=== PATIENT | male | born 1955 | race American Indian/Alaskan Native ===

== ENCOUNTER 2017-10-19 13:02 | Inpatient (IN) | payer MEDICAID ==
[2017-10-19 14:28] LABS: BASO # 0.1 K/uL (0.0-0.2); BASO % 0.8 % (0.0-2.0); EOS # 0.1 K/uL (0.0-0.7); EOS % 0.5 % (0.0-4.0); HEMOGLOBIN 11.4 g/dL (12.0-18.0); LYMPH # 1.7 K/uL (1.0-4.3); LYMPH % 13.8 % (20.0-40.0); MEAN CELL VOLUME 85.8 fL (80.0-94.0); MEAN CORPUSCULAR HEMOGLOBIN 29.1 pg (27.0-31.0); MEAN PLATELET VOLUME 5.9 fL (7.2-11.7); MONO # 1.7 K/uL (0.0-0.8); MONO % 14.2 % (0.0-10.0); NEUT # 8.5 K/uL (1.8-7.0); NEUT % 70.7 % (50.0-75.0); NRBC % 0.1 % (0.0-2.0); RBC 3.9 Mil/uL (4.40-5.90); RED CELL DISTRIBUTION WIDTH 15.2 % (11.5-14.5)
[2017-10-19 14:51] LABS: ALB/GLOB RATIO 0.8 (1.0-2.1); ALBUMIN 3.9 g/dL (3.5-5.0); ALT/SGPT 28 U/L (21-72); AST/SGOT 23 U/L (17-59); BLOOD UREA NITROGEN 10 mg/dL (9-20); CALCIUM 9.2 mg/dl (8.6-10.4); GFR AFRICAN-AMERICAN > 60; GFR NON-AFRICAN AMERICAN > 60
[2017-10-19 15:02] LABS: B-TYPE NATRIURETIC PEPTIDE 83.2 pg/mL (0-900)
--- NOTE | 2017-10-19 15:29 | RAD ---
PROCEDURE: CHEST RADIOGRAPH, 1 VIEW HISTORY: Shortness of breath. Relevant interventional procedure(s): COMPARISON: 04/20/2017 two view chest. 04/14/2017 ultrasound right pleural space documenting moderate pleural effusion FINDINGS: LUNGS: Consolidative changes right lung, volume loss noted. PLEURA: Large loculated right pleural effusion CARDIOVASCULAR: Cardiomegaly. No evidence of acute, significant cardiovascular disease. OSSEOUS STRUCTURES: No significant abnormalities. VISUALIZED UPPER ABDOMEN: Submit OTHER FINDINGS: None. IMPRESSION: Large loculated right pleural effusion is increased compared to the prior study.
--- NOTE | 2017-10-19 17:21 | C.PDOC ---
History Of Present Illness 62yo male, presents to ED for evaluation as referred by his PMD due to low pulse ox. Patient is currently 90% on room air and is complaining of mild shortness of breath upon exertion. He denies any fever, chills, chest pain, cough, or congestion. He also denies any recent travels or sick contacts. Patient states he has had pleural effusions in the past. He offers no other medial complaints. Time Seen by Provider: 10/19/17 13:50 Chief Complaint (Nursing): Shortness Of Breath History Per: Patient History/Exam Limitations: no limitations Current Symptoms Are (Timing): Still Present Exacerbating Factor(s): Exertion Past Medical History Reviewed: Historical Data, Nursing Documentation, Vital Signs Vital Signs: Last Vital Signs Temp 98.6 F 10/19/17 18:15 Pulse 100 H 10/19/17 18:45 Resp 22 10/19/17 18:45 BP 137/92 H 10/19/17 18:15 Pulse Ox 95 10/19/17 18:45 - Medical History PMH: Anemia (first transfusion during this admission), HTN, Hypercholesterolemia , Malignancy (PROSTATE CANCER HX), Schizophrenia - [employer] Procedures ASSISTANCE WITH RESPIRATORY VENTILATION, 24-96 HRS, CPAP (04/13/17) CLOSED ENDOSCOPIC BIOPSY OF LARGE INTESTINE (11/10/13) COLONOSCOPY (11/10/13) ESOPHAGOGASTRODUODENOSCOPY [EGD] W/CLOSED BIOPSY (11/10/13) IMPACTED FECES REMOVAL (11/10/13) PACKED CELL TRANSFUSION (11/10/13) Family History: States: No Known Family Hx - Social History Hx Tobacco Use: Yes Hx Alcohol Use: No Hx Substance Use: No - Immunization History Hx Tetanus Toxoid Vaccination: No Hx Influenza Vaccination: Yes Hx Pneumococcal Vaccination: No Review Of Systems Except As Marked, All Systems Reviewed And Found Negative. Constitutional: Negative for: Fever, Chills Cardiovascular: Negative for: Chest Pain Respiratory: Positive for: SOB with Excertion. Negative for: Cough Physical Exam - Physical Exam Appears: Non-toxic, No Acute Distress Skin: Normal Color, Warm, Dry Head: Atraumatic, Normacephalic Eye(s): right: Abnormal Pupil (right eye cataract), left: Normal Inspection Oral Mucosa: Moist Neck: Normal ROM, Supple Chest: Symmetrical Cardiovascular: Rhythm Regular Respiratory: Decreased Breath Sounds (right sided diminished breath sounds) Gastrointestinal/Abdominal: Normal Exam, Soft, No Tenderness Back: Normal Inspection Extremity: Normal ROM Neurological/Psych: Oriented x3 ED Course And Treatment - Laboratory Results Result Diagrams: 10/19/17 14:24 10/19/17 14:24 ECG: Interpreted By Me, Viewed By Me ECG Rhythm: Sinus Rhythm Interpretation Of ECG: Left axis deviation, LVH Rate From EC O2 Sat by Pulse Oximetry: 95 (on O2 via NC) Pulse Ox Interpretation: Normal Medical Decision Making Medical Decision Making: Impression: Hypoxia Plan: -- Labs -- O2 via NC --CXR -- EKG Progress: Case discussed with Dr. Byers at 1530 and patient to be admitted under his service to telemetry. CT Chest w/o contrast ordered Disposition - Disposition Disposition: HOSPITALIZED Disposition Time: 15:30 Condition: GOOD - Clinical Impression Clinical Impression: CHF (congestive heart failure), Pleural effusion - Scribe Statement The provider has reviewed the documentation as recorded by the Scribe (Diandra Sandhu) Provider Attestation: All medical record entries made by the Scribe were at my direction and personally dictated by me. I have reviewed the chart and agree that the record accurately reflects my personal performance of the history, physical exam, medical decision making, and the department course for this patient. I have also personally directed, reviewed, and agree with the discharge instructions and disposition.
--- NOTE | 2017-10-19 18:35 | CT ---
PROCEDURE: CT Chest without contrast HISTORY: Right-sided pleural effusion - CXR done today COMPARISON: Comparison made with prior CT scan chest 04/13/2017. TECHNIQUE: Contiguous axial images were obtained through the chest without intravenous contrast enhancement. Sagittal and coronal reconstructions were performed. Radiation dose (DLP): 443.12 mGy-cm. This CT exam was performed using one or more of the following dose reduction techniques: Automated exposure control, adjustment of the mA and/or kV according to patient size, and/or use of iterative reconstruction technique. . FINDINGS: LUNGS: The right-sided effusion some of which appears loculated . There is mild right basilar atelectasis. Patchy nodular opacities in the left lung base present. No significant left-sided effusion. Significant emphysematous changes upper lobe predominance. . There is fibrosis also seen particularly in the right and lower lobes. MEDIASTINUM: Heart appears mildly enlarged. . Trace pericardial effusion. Ascending thoracic aorta measures approximately 3.25 cm and descending thoracic aorta measures approximately 2.8 cm. Pulmonary trunk measures approximately 2.8 cm. Multiple small to medium-sized mediastinal lymph nodes are present the largest in the right parasagittal precarinal region measuring approximately 2 cm. Evaluation for hilar adenopathy is limited due to the lack of circulating intravenous contrast material. There is a small to medium size hiatal hernia. Wall thickening of the distal esophagus likely due to protrusion of gastric mucosa. Possibility of esophagitis not excluded. PLEURA: As above. No evidence of pneumothorax. BONES: No fracture. No destructive lesion. UPPER ABDOMEN: Re- demonstrated are multiple low-attenuation foci seen scattered throughout the hepatic parenchyma on. Minute these foci probably represent hepatic cysts however others are too small to characterize OTHER FINDINGS: None. IMPRESSION: Right-sided effusion portion of which is felt to be loculated. Right basilar atelectasis. Patchy nodular opacity seen in the left lung base. Significant emphysematous changes upper lobe predominance. There also the fibrosis changes seen predominately throughout the right lung upper lobe greater than lower lobe. Re- demonstrated are multiple varying sized low-attenuation foci scattered throughout the hepatic parenchyma many of which felt to represent hepatic cysts however others are too small to characterize. Small to medium size hiatal hernia. Cardiomegaly. With trace pericardial effusion.
[2017-10-19] MEDS ORDERED: Albuterol-Ipratrop 3 mg / 0.5 (3 ml) UD INH PRN (19:55)
[2017-10-19] MEDS: Latanoprost 2.5 ml Opht Soln OD SCH (22:45)
[2017-10-20] MEDS: Azithromycin 500 MG in Sodium Chloride 0.9% 250 ML IVPB SCH (10:15)
--- NOTE | 2017-10-20 12:30 | CARD ---
APPROVED REPORT EKG Measurement Heart [id number] <Conclusion> Normal sinus rhythm Left axis deviation Voltage criteria for left ventricular hypertrophy Abnormal ECG
--- NOTE | 2017-10-20 15:11 | CP.PCM.CON ---
History of Present Illness - History of Present Illness History of Present Illness: Reason for consult: Pleural effusion HPI: 62 M with PMHx of Prostate cancer, Schizophrenia, HTN, HLD referred to the ED for evaluation of low pulse ox. On presentation he was saturating at 90% on RA and reported mild dyspnea on exertion. He was admitted to Dr. Byers' service. A right pleural effusion was identified on CXR and CT chest. Today the patient was seen and examined on the med/surg floors. PMHX: Prostate cancer, Schizophrenia, HTN, HLD PSH: EGD, Allergies: NKDA SH: tobacco use, denies alcohol and illicit drug use Assessment and Plan: 1. Right Pleural effusion - CT Chest 10/19: Right sided loculated effusion, with mild right basilar atelectasis, patchy nodular opacities in the left lung base, emphysematous changes with upper lobe predominance, fibrotic changes through the upper lobes R >L - IR consult for thoracentesis 2. CHF - CT Chest 10/19: mildly enlarged heart, trace pericardial effusion Past Patient History - Infectious Disease Hx of Infectious Diseases: None - Past Medical History & Family History Past Medical History?: No - Past Social History Smoking Status: Heavy Smoker > 10 Cigarettes Daily - CARDIAC Hx Hypercholesterolemia: Yes Hx Hypertension: Yes - HEENT Hx Cataracts: Yes - RENAL Hx Chronic Kidney Disease: No - ENDOCRINE/METABOLIC Hx Endocrine Disorders: No - HEMATOLOGICAL/ONCOLOGICAL Hx Anemia: Yes (first transfusion during this admission) - INTEGUMENTARY Hx Dermatological Problems: No - MUSCULOSKELETAL/RHEUMATOLOGICAL Hx Falls: No - GASTROINTESTINAL Hx Gastrointestinal Disorders: No - GENITOURINARY/GYNECOLOGICAL Hx Genitourinary Disorders: Yes Hx Prostate Cancer: Yes - PSYCHIATRIC Hx Schizophrenia: Yes Hx Substance Use: No - SURGICAL HISTORY Hx Surgeries: No - ANESTHESIA Hx Anesthesia: Yes Hx Anesthesia Reactions: No Meds Allergies/Adverse Reactions: Allergies Allergy/AdvReac Type Severity Reaction Status Date / Time No Known Allergies Allergy Verified 10/19/17 13:40 - Medications Medications: Current Medications Albuterol/Ipratropium (Duoneb 3 Mg/0.5 Mg (3 Ml) Ud) 3 ml INH RQ6 PRN PRN Reason: Shortness of Breath Amlodipine Besylate (Norvasc) 10 mg PO DAILY [facility] Last Admin: 10/20/17 10:12 Dose: 10 mg Bisoprolol Fumarate (Zebeta) 5 mg PO DAILY [facility] Last Admin: 10/20/17 10:12 Dose: 5 mg Clonidine HCl (Catapres) 0.1 mg PO BID [facility] Last Admin: 10/20/17 10:12 Dose: 0.1 mg Enoxaparin Sodium (Lovenox) 40 mg SC DAILY [facility] Ferrous Sulfate (Feosol) 325 mg PO DAILY [facility] Last Admin: 10/20/17 10:12 Dose: 325 mg Azithromycin 500 mg/ Sodium (Chloride) 250 mls @ 250 mls/hr IVPB Q24H [facility] PRN Reason: Protocol Last Admin: 10/20/17 10:15 Dose: 250 mls/hr Ceftriaxone Sodium 1 gm/ (Sodium Chloride) 100 mls @ 100 mls/hr IVPB DAILY [facility] PRN Reason: Protocol Last Admin: 10/20/17 10:13 Dose: 100 mls/hr Latanoprost (Xalatan Opht) 2.5 ml OD HS [facility] Last Admin: 10/19/17 22:45 Dose: 2.5 ml Megestrol Acetate (Megace) 40 mg PO DAILY [facility] Last Admin: 10/20/17 10:12 Dose: 40 mg Oxybutynin Chloride (Ditropan Tab) 5 mg PO TID [facility] Last Admin: 10/20/17 13:46 Dose: 5 mg Prednisone (Prednisone Tab) 10 mg PO DAILY [facility] Last Admin: 10/20/17 10:12 Dose: 10 mg Rosuvastatin Calcium (Crestor) 5 mg PO HS [facility] Thiamine HCl (Vitamin B1 Tab) 50 mg PO DAILY [facility] Last Admin: 10/20/17 10:12 Dose: 50 mg Results - Vital Signs Recent Vital Signs: Last Vital Signs Temp 98.3 F 10/20/17 08:00 Pulse 90 10/20/17 08:15 Resp 20 10/20/17 08:00 BP 153/93 H 10/20/17 08:00 Pulse Ox 95 10/20/17 08:00 - Labs Result Diagrams: 10/19/17 14:24 10/19/17 14:24
[2017-10-20] MEDS: Enoxaparin 40 mg Syringe SC SCH (22:19)
[2017-10-20] MEDS: Latanoprost 2.5 ml Opht Soln OD SCH (22:20)
--- NOTE | 2017-10-21 06:18 | HP ---
HISTORY OF PRESENT ILLNESS: This is a 62-year-old female with past medical history of multiple medical problems, sent to emergency room from my office on the day of admission due to shortness of breath. The patient was examined in the emergency room, and he was found to have O2 saturation of 90% in room air, and he reported to have mild exertional shortness of breath. The patient had a chest x-ray, and CAT scan that showed right-sided loculated pleural effusion and possible left-sided nodular infiltration. The patient subsequently was admitted for further management and pulmonary consult was obtained. Other review of system is negative. ALLERGIES: NO KNOWN ALLERGY. MEDICATIONS: As per MAR. PAST MEDICAL HISTORY: Cancer prostate, anemia, COPD, hypertension. SOCIAL HISTORY: Smoker. No EtOH or substance abuse. FAMILY HISTORY: Noncontributory. PHYSICAL EXAMINATION: GENERAL: The patient is in bed, not in any cardiopulmonary distress at the time of this examination. VITAL SIGNS: Blood pressure 124/81, temperature 98, respiratory rate 20, pulse 81. HEENT: Normal-appearing mucosa of the conjunctivae, oropharynx, and nasal membrane mucosa. NECK: Supple. No JVD. No carotid bruit. No lymph node. No thyromegaly. CHEST AND LUNGS: Bilateral symmetrical expansion. Decreased air entry right lower lung field. CARDIOVASCULAR SYSTEM: PMI not localized. S1, S2. No additional sounds. ABDOMEN: Normoactive bowel sounds. No tenderness. No organomegaly. No masses. EXTREMITIES: No cyanosis, no clubbing, no edema. CURRENCY COUNTER: Alert, awake, oriented x2. Moves all extremities equally. ASSESSMENT: 1. Loculated right pleural effusion, possible left lung nodular infiltrate. 2. Sepsis. 3. Hypertension. PLAN: Continue current antibiotics and follow recommendation of upper and bottom lacer hand. We will continue steroid 2 mg and follow recommendation of consultants. Jaclyn Byers MD
[2017-10-21 07:26] LABS: BLOOD UREA NITROGEN 15 mg/dL (9-20); CALCIUM 8.7 mg/dl (8.6-10.4); GFR AFRICAN-AMERICAN > 60; GFR NON-AFRICAN AMERICAN > 60
[2017-10-21 07:36] LABS: BASO # 0.1 K/uL (0.0-0.2); BASO % 0.7 % (0.0-2.0); EOS # 0.1 K/uL (0.0-0.7); EOS % 0.7 % (0.0-4.0); HEMOGLOBIN 10.3 g/dL (12.0-18.0); LYMPH # 1.8 K/uL (1.0-4.3); LYMPH % 17.1 % (20.0-40.0); MEAN CELL VOLUME 85.9 fL (80.0-94.0); MEAN CORPUSCULAR HEMOGLOBIN 29.2 pg (27.0-31.0); MONO # 1.5 K/uL (0.0-0.8); MONO % 14.8 % (0.0-10.0); NEUT % 66.7 % (50.0-75.0); RBC 3.53 Mil/uL (4.40-5.90); RED CELL DISTRIBUTION WIDTH 15.2 % (11.5-14.5); WHITE BLOOD COUNT 10.5 K/uL (4.8-10.8)
[2017-10-21] MEDS: Enoxaparin 40 mg Syringe SC SCH (10:12)
[2017-10-21 10:50] LABS: INR 1.1; PROTHROMBIN TIME 13.1 SECONDS (9.7-12.2)
[2017-10-21] MEDS: Azithromycin 500 MG in Sodium Chloride 0.9% 250 ML IVPB SCH (12:21)
--- NOTE | 2017-10-21 16:43 | CP.PCM.PN ---
Subjective - Date & Time of Evaluation Date of Evaluation: 10/21/17 Time of Evaluation: 10:30 - Subjective Subjective: Patient seen and examined at bedside. No complaints today. Patient still short of breath but improved. No acute events overnight. Assessment and Plan: 1. Right Pleural effusion - CT Chest 10/19: Right sided loculated effusion, with mild right basilar atelectasis, patchy nodular opacities in the left lung base, fibrotic changes through the upper lobes R>L - IR consult for thoracentesis 2. COPD - CT Chest 10/19: emphysematous changes with upper lobe predominance - duonebs - prednisone 10mg PO QD - IV antibiotics 3. CHF - CT Chest 10/19: mildly enlarged heart, trace pericardial effusion Objective - Vital Signs/Intake and Output Vital Signs (last 24 hours): Temp Pulse Resp BP Pulse Ox 97.9 F 84 18 147/93 H 95 10/21/17 07:10 10/21/17 15:54 10/21/17 07:10 10/21/17 07:10 10/21/17 07:10 Intake and Output: 10/21/17 10/21/17 06:59 18:59 Intake Total 0 Balance 0 - Medications Medications: Current Medications Albuterol/Ipratropium (Duoneb 3 Mg/0.5 Mg (3 Ml) Ud) 3 ml INH RQ6 PRN PRN Reason: Shortness of Breath Amlodipine Besylate (Norvasc) 10 mg PO DAILY [facility] Last Admin: 10/21/17 10:12 Dose: 10 mg Bisoprolol Fumarate (Zebeta) 5 mg PO DAILY [facility] Last Admin: 10/21/17 10:12 Dose: 5 mg Clonidine HCl (Catapres) 0.1 mg PO BID [facility] Last Admin: 10/21/17 10:12 Dose: 0.1 mg Enoxaparin Sodium (Lovenox) 40 mg SC DAILY [facility] Last Admin: 10/21/17 10:12 Dose: Not Given Ferrous Sulfate (Feosol) 325 mg PO DAILY [facility] Last Admin: 10/21/17 10:12 Dose: 325 mg Azithromycin 500 mg/ Sodium (Chloride) 250 mls @ 250 mls/hr IVPB Q24H [facility] PRN Reason: Protocol Last Admin: 10/21/17 12:21 Dose: 250 mls/hr Ceftriaxone Sodium 1 gm/ (Sodium Chloride) 100 mls @ 200 mls/hr IVPB DAILY [facility] PRN Reason: Protocol Last Admin: 10/21/17 10:49 Dose: Not Given Latanoprost (Xalatan Opht) 2.5 ml OD HS [facility] Last Admin: 10/20/17 22:20 Dose: 2.5 ml Megestrol Acetate (Megace) 40 mg PO DAILY [facility] Last Admin: 10/21/17 10:12 Dose: 40 mg Oxybutynin Chloride (Ditropan Tab) 5 mg PO TID [facility] Last Admin: 10/21/17 13:51 Dose: 5 mg Prednisone (Prednisone Tab) 10 mg PO DAILY [facility] Last Admin: 10/21/17 10:12 Dose: 10 mg Rosuvastatin Calcium (Crestor) 5 mg PO HS [facility] Last Admin: 10/20/17 22:19 Dose: 5 mg Thiamine HCl (Vitamin B1 Tab) 50 mg PO DAILY [facility] Last Admin: 10/21/17 10:12 Dose: 50 mg - Labs Labs: 10/21/17 06:56 10/21/17 06:56 PT 13.1 SECONDS (9.7-12.2) H 10/21/17 10:38 INR 1.1 10/21/17 10:38 APTT 30 SECONDS (21-34) 10/21/17 10:38
[2017-10-21] MEDS: Latanoprost 2.5 ml Opht Soln OD SCH (21:37)
--- NOTE | 2017-10-22 02:47 | PN ---
DATE: 10/21/2017 SUBJECTIVE: The patient is seen today 10/21/2017. He is less short of breath. PHYSICAL EXAMINATION: VITAL SIGNS: Blood pressure 144/90, temperature 98.3, respiratory rate 20 and pulse 84. HEENT: Normal-appearing mucosa of the conjunctivae. NECK: Supple. No JVD. No carotid bruit. No lymph node. No thyromegaly. CHEST AND LUNGS: Decreased air entry right lower lung goa. CARDIOVASCULAR SYSTEM: PMI not localized. S1, S2. No additional sounds. ABDOMEN: Normoactive bowel sounds. No tenderness. No organomegaly. No masses. EXTREMITIES: No cyanosis, no clubbing, no edema. AGRONOMY ADVISOR: Alert, awake, oriented x2. No neurological deficit could be appreciated. ASSESSMENT: 1. Loculated pleural effusion with possible underlying pneumonia. 2. Hypertension. 3. History of prostate cancer. PLAN Continue current IV antibiotics and follow Pulmonary recommendations. Jaclyn Byers MD
[2017-10-22] MEDS: Azithromycin 500 MG in Sodium Chloride 0.9% 250 ML IVPB SCH (10:30)
--- NOTE | 2017-10-22 11:11 | US ---
PROCEDURE: DATE OF STUDY: 10/22/2017 Ultrasound of chest for purposes of thoracentesis HISTORY: Pleural effusion COMPARISON: TECHNIQUE: Limited ultrasound of chest was performed with a curved probe. FINDINGS: There is no left effusion and trace right effusion. Right effusion is too small for thoracentesis. IMPRESSION: No significant pleural effusion for thoracentesis.
[2017-10-22] MEDS: Enoxaparin 40 mg Syringe SC SCH (11:15)
--- NOTE | 2017-10-22 17:52 | CP.PCM.PN ---
Subjective - Date & Time of Evaluation Date of Evaluation: 10/22/17 Time of Evaluation: 11:30 - Subjective Subjective: patient seen and examined Sitting comfortably in no acute distress Not enough fluid for thoracentesis Objective - Vital Signs/Intake and Output Vital Signs (last 24 hours): Temp Pulse Resp BP Pulse Ox 99.1 F 81 20 114/76 96 10/22/17 15:00 10/22/17 16:00 10/22/17 15:00 10/22/17 15:00 10/22/17 15:00 Intake and Output: 10/22/17 10/22/17 06:59 18:59 Intake Total 240 Balance 240 - Medications Medications: Current Medications Albuterol/Ipratropium (Duoneb 3 Mg/0.5 Mg (3 Ml) Ud) 3 ml INH RQ6 PRN PRN Reason: Shortness of Breath Amlodipine Besylate (Norvasc) 10 mg PO DAILY [facility] Last Admin: 10/22/17 10:00 Dose: 10 mg Bisoprolol Fumarate (Zebeta) 5 mg PO DAILY [facility] Last Admin: 10/22/17 10:00 Dose: 5 mg Clonidine HCl (Catapres) 0.1 mg PO BID [facility] Last Admin: 10/22/17 11:15 Dose: 0.1 mg Enoxaparin Sodium (Lovenox) 40 mg SC DAILY [facility] Last Admin: 10/22/17 11:15 Dose: 40 mg Ferrous Sulfate (Feosol) 325 mg PO DAILY [facility] Last Admin: 10/22/17 11:15 Dose: 325 mg Ceftriaxone Sodium 1 gm/ (Sodium Chloride) 100 mls @ 200 mls/hr IVPB DAILY [facility] PRN Reason: Protocol Last Admin: 10/22/17 10:00 Dose: 200 mls/hr Azithromycin 500 mg/ Sodium (Chloride) 250 mls @ 250 mls/hr IVPB DAILY [facility] PRN Reason: Protocol Latanoprost (Xalatan Opht) 2.5 ml OD HS [facility] Last Admin: 10/21/17 21:37 Dose: 2.5 ml Megestrol Acetate (Megace) 40 mg PO DAILY [facility] Last Admin: 10/22/17 10:00 Dose: 40 mg Oxybutynin Chloride (Ditropan Tab) 5 mg PO TID [facility] Last Admin: 10/22/17 14:00 Dose: 5 mg Prednisone (Prednisone Tab) 10 mg PO DAILY [facility] Last Admin: 10/22/17 11:16 Dose: 10 mg Rosuvastatin Calcium (Crestor) 5 mg PO HS [facility] Last Admin: 10/21/17 21:37 Dose: 5 mg Thiamine HCl (Vitamin B1 Tab) 50 mg PO DAILY [facility] Last Admin: 10/22/17 11:16 Dose: 50 mg - Labs Labs: 10/21/17 06:56 10/21/17 06:56 PT 13.1 SECONDS (9.7-12.2) H 10/21/17 10:38 INR 1.1 10/21/17 10:38 APTT 30 SECONDS (21-34) 10/21/17 10:38 - Head Exam Head Exam: ATRAUMATIC, NORMOCEPHALIC - Eye Exam Eye Exam: Normal appearance - ENT Exam ENT Exam: Mucous Membranes Moist - Neck Exam Neck Exam: Normal Inspection - Respiratory Exam Respiratory Exam: Decreased Breath Sounds - Cardiovascular Exam Cardiovascular Exam: REGULAR RHYTHM Assessment and Plan (1) Pleural effusion Assessment & Plan: Not enough fluid for thoracentesis Continue nebulizer treatment Taper prednisone On antibiotics Status: Acute
[2017-10-22] MEDS: Latanoprost 2.5 ml Opht Soln OD SCH (21:37)
[2017-10-23] MEDS: Enoxaparin 40 mg Syringe SC SCH (09:17)
--- NOTE | 2017-10-23 10:01 | PN ---
DATE: 10/22/2017 SUBJECTIVE: He was having less short of breath and cough. PHYSICAL EXAMINATION VITAL SIGNS: Blood pressure was 114/76, temperature 99.1, respiratory rate 20, pulse 73.. HEENT: Normal-appearing mucosa of the conjunctivae. NECK: Supple. No JVD. No carotid bruit. No lymph nodes. No thyromegaly. CHEST AND LUNGS: Bilateral symmetrical expansion. Good air exchange. No rales, no rhonchi. CARDIOVASCULAR SYSTEM: PMI not localized. S1, S2. No additional sounds. ABDOMEN: Normoactive bowel sounds. No tenderness. No organomegaly. No masses. EXTREMITIES: No cyanosis, no clubbing, no edema. TOUR CONSULTANT: Alert, awake, oriented x2, and no neurological deficit could be appreciated. A trial was done to do thoracentesis by IR, but as per radiologist there was no enough fluid to drain. ASSESSMENT: 1. Pleural effusion likely parapneumonic, which is resolving. 2. Hypertension. 3. Smoker. 4. Chronic obstructive pulmonary disease. PLAN: Continue current antibiotics. Follow Pulmonary consult recommendations and current management. Jaclyn Byers MD
[2017-10-23] MEDS: Azithromycin 500 MG in Sodium Chloride 0.9% 250 ML IVPB SCH (11:01)
--- NOTE | 2017-10-23 12:24 | CP.PCM.PN ---
Subjective - Date & Time of Evaluation Date of Evaluation: 10/23/17 Time of Evaluation: 09:25 - Subjective Subjective: Patient seen and examined at bedside. No complaints today. Patient still short of breath but improved. No acute events overnight. Assessment and Plan: 1. Right Pleural effusion - CT Chest 10/19: Right sided loculated effusion, with mild right basilar atelectasis, patchy nodular opacities in the left lung base, fibrotic changes through the upper lobes R>L - IR found trace right effusion too small to tap 2. COPD - CT Chest 10/19: emphysematous changes with upper lobe predominance - duonebs - prednisone 10mg PO QD - IV antibiotics 3. CHF - CT Chest 10/19: mildly enlarged heart, trace pericardial effusion Objective - Vital Signs/Intake and Output Vital Signs (last 24 hours): Temp Pulse Resp BP Pulse Ox 98.5 F 69 20 138/82 95 10/23/17 08:09 10/23/17 08:09 10/23/17 08:09 10/23/17 08:09 10/23/17 08:09 Intake and Output: 10/23/17 10/23/17 06:59 18:59 Intake Total 620 Balance 620 - Medications Medications: Current Medications Albuterol/Ipratropium (Duoneb 3 Mg/0.5 Mg (3 Ml) Ud) 3 ml INH RQ6 PRN PRN Reason: Shortness of Breath Amlodipine Besylate (Norvasc) 10 mg PO DAILY [facility] Last Admin: 10/23/17 09:17 Dose: 10 mg Bisoprolol Fumarate (Zebeta) 5 mg PO DAILY [facility] Last Admin: 10/23/17 09:16 Dose: 5 mg Clonidine HCl (Catapres) 0.1 mg PO BID [facility] Last Admin: 10/23/17 09:16 Dose: 0.1 mg Enoxaparin Sodium (Lovenox) 40 mg SC DAILY [facility] Last Admin: 10/23/17 09:17 Dose: 40 mg Ferrous Sulfate (Feosol) 325 mg PO DAILY [facility] Last Admin: 10/23/17 09:16 Dose: 325 mg Ceftriaxone Sodium 1 gm/ (Sodium Chloride) 100 mls @ 200 mls/hr IVPB DAILY [facility] PRN Reason: Protocol Last Admin: 10/23/17 10:04 Dose: 200 mls/hr Azithromycin 500 mg/ Sodium (Chloride) 250 mls @ 250 mls/hr IVPB DAILY [facility] PRN Reason: Protocol Last Admin: 10/23/17 11:01 Dose: 250 mls/hr Latanoprost (Xalatan Opht) 2.5 ml OD HS [facility] Last Admin: 10/22/17 21:37 Dose: 2.5 ml Megestrol Acetate (Megace) 40 mg PO DAILY [facility] Last Admin: 10/23/17 09:16 Dose: 40 mg Oxybutynin Chloride (Ditropan Tab) 5 mg PO TID [facility] Last Admin: 10/23/17 09:16 Dose: 5 mg Prednisone (Prednisone Tab) 10 mg PO DAILY [facility] Last Admin: 10/23/17 09:17 Dose: 10 mg Rosuvastatin Calcium (Crestor) 5 mg PO HS [facility] Last Admin: 10/22/17 21:36 Dose: 5 mg Thiamine HCl (Vitamin B1 Tab) 50 mg PO DAILY [facility] Last Admin: 10/23/17 09:16 Dose: 50 mg - Labs Labs: 10/21/17 06:56 10/21/17 06:56 PT 13.1 SECONDS (9.7-12.2) H 10/21/17 10:38 INR 1.1 10/21/17 10:38 APTT 30 SECONDS (21-34) 10/21/17 10:38 Assessment and Plan (1) Pleural effusion Status: Acute
[2017-10-23] MEDS: Latanoprost 2.5 ml Opht Soln OD SCH (21:49)
[2017-10-24] MEDS: Enoxaparin 40 mg Syringe SC SCH (09:28)
[2017-10-24] MEDS: Azithromycin 500 MG in Sodium Chloride 0.9% 250 ML IVPB SCH (10:00)
--- NOTE | 2017-10-24 13:53 | PN ---
DATE: 10/23/2017 SUBJECTIVE: The patient was seen on 10/23/2017. He was feeling overall better with less shortness of breath. PHYSICAL EXAMINATION: VITAL SIGNS: Blood pressure was 130/86, temperature 99.5, respiratory rate 20, and pulse 80. HEENT: Pupils equal, and reactive to light. Normal-appearing mucosa of the conjunctivae, oropharynx, and nasal membrane mucosa. NECK: Supple. No JVD. No carotid bruit. No lymph node. No thyromegaly. CHEST/LUNGS: Bilateral symmetrical expansion. Good air exchange. No rales, no rhonchi, but there is decreased air entry in the right lower lung gao. CARDIOVASCULAR SYSTEM: PMI not localized. S1, S2. No additional sounds. ABDOMEN: Normoactive bowel sounds. No tenderness. No organomegaly. No masses. EXTREMITIES: No cyanosis, no clubbing, no edema. 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 No neurological deficits could be appreciated. ASSESSMENT: Right pleural effusion, chronic obstructive pulmonary disease, smoker, hypertension, history of cancer of the prostate. PLAN: Continue current antibiotics. Follow furnace keeper's recommendations. Jaclyn Byers MD
[2017-10-24] MEDS: Latanoprost 2.5 ml Opht Soln OD SCH (21:30)
--- NOTE | 2017-10-24 22:17 | PN ---
DATE: 10/24/2017 SUBJECTIVE: The patient is seen today, 10/24/2017. He has less shortness of breath. OBJECTIVE: VITAL SIGNS: Blood pressure is 138/88, temperature 98.4, respiratory rate 20, and pulse 82. HEENT: The patient has blindness of the right eye. Normal-appearing mucosa of the conjunctivae, oropharynx, and nasal membrane mucosa. NECK: Supple. No JVD. No carotid bruit. No lymph node. No thyromegaly. CHEST AND LUNGS: Bilateral symmetrical expansion. Good air exchange. No rales, no rhonchi. CARDIOVASCULAR SYSTEM: PMI not localized. S1, S2. No additional sounds. ABDOMEN: Normoactive bowel sounds. No tenderness. No organomegaly. No masses. EXTREMITIES: No cyanosis, no clubbing, no edema. BUTTON RIVETER: Alert, awake, oriented x2. No neurological deficit could be appreciated. ASSESSMENT: Pneumonia, pleural effusion, chronic obstructive pulmonary disease, smoker, hypertension, history of cancer prostate. PLAN: Continue current antibiotics and follow pulmonary recommendations. Jaclyn Byers MD
[2017-10-25] MEDS: Albuterol-Ipratrop 3 mg / 0.5 (3 ml) UD INH PRN (00:17)
[2017-10-25 07:51] LABS: BASO # 0.1 K/uL (0.0-0.2); BASO % 0.9 % (0.0-2.0); EOS # 0.1 K/uL (0.0-0.7); EOS % 1.2 % (0.0-4.0); HEMOGLOBIN 11.2 g/dL (12.0-18.0); LYMPH # 1.5 K/uL (1.0-4.3); LYMPH % 16.8 % (20.0-40.0); MEAN CELL VOLUME 87.3 fL (80.0-94.0); MEAN CORPUSCULAR HEMOGLOBIN 29.7 pg (27.0-31.0); MEAN PLATELET VOLUME 6.1 fL (7.2-11.7); MONO # 1.1 K/uL (0.0-0.8); MONO % 12.4 % (0.0-10.0); NEUT # 6.2 K/uL (1.8-7.0); NEUT % 68.7 % (50.0-75.0); RBC 3.78 Mil/uL (4.40-5.90); RED CELL DISTRIBUTION WIDTH 15.1 % (11.5-14.5)
[2017-10-25 08:04] LABS: BLOOD UREA NITROGEN 12 mg/dL (9-20); GFR AFRICAN-AMERICAN > 60; GFR NON-AFRICAN AMERICAN > 60
[2017-10-25] MEDS: Enoxaparin 40 mg Syringe SC SCH (09:07)
[2017-10-25] MEDS: Azithromycin 500 MG in Sodium Chloride 0.9% 250 ML IVPB SCH (10:00)
[2017-10-25 16:51] VITALS: RESP 20
--- NOTE | 2017-10-25 18:20 | CP.PCM.PN ---
Subjective - Date & Time of Evaluation Date of Evaluation: 10/25/17 Time of Evaluation: 16:25 - Subjective Subjective: patient seen and examined Sitting comfortably in no acute distress Denies cough, denies fever or chills, denies chest pain No thoracentesis done because of not enough fluid Continue present treatment Follow-up is necessary Repeat chest x-ray in 2 weeks Objective - Vital Signs/Intake and Output Vital Signs (last 24 hours): Temp Pulse Resp BP Pulse Ox 98.0 F 91 H 20 142/90 97 10/25/17 15:04 10/25/17 16:00 10/25/17 15:04 10/25/17 15:04 10/25/17 15:04 Intake and Output: 10/25/17 10/25/17 06:59 18:59 Intake Total 1000 Balance 1000 - Medications Medications: Current Medications Albuterol/Ipratropium (Duoneb 3 Mg/0.5 Mg (3 Ml) Ud) 3 ml INH RQ4 PRN PRN Reason: Shortness of Breath Last Admin: 10/25/17 00:17 Dose: 3 ml Amlodipine Besylate (Norvasc) 10 mg PO DAILY [facility] Last Admin: 10/25/17 09:09 Dose: 10 mg Bisoprolol Fumarate (Zebeta) 5 mg PO DAILY [facility] Last Admin: 10/25/17 09:07 Dose: 5 mg Clonidine HCl (Catapres) 0.1 mg PO BID [facility] Last Admin: 10/25/17 09:09 Dose: 0.1 mg Enoxaparin Sodium (Lovenox) 40 mg SC DAILY [facility] Last Admin: 10/25/17 09:07 Dose: 40 mg Ferrous Sulfate (Feosol) 325 mg PO DAILY [facility] Last Admin: 10/25/17 09:08 Dose: 325 mg Ceftriaxone Sodium 1 gm/ (Sodium Chloride) 100 mls @ 200 mls/hr IVPB DAILY [facility] PRN Reason: Protocol Last Admin: 10/25/17 10:00 Dose: 200 mls/hr Azithromycin 500 mg/ Sodium (Chloride) 250 mls @ 250 mls/hr IVPB DAILY [facility] PRN Reason: Protocol Last Admin: 10/25/17 10:00 Dose: 250 mls/hr Latanoprost (Xalatan Opht) 2.5 ml OD HS [facility] Last Admin: 10/24/17 21:30 Dose: 2.5 ml Megestrol Acetate (Megace) 40 mg PO DAILY [facility] Last Admin: 10/25/17 09:07 Dose: 40 mg Oxybutynin Chloride (Ditropan Tab) 5 mg PO TID [facility] Last Admin: 10/25/17 14:11 Dose: 5 mg Prednisone (Prednisone Tab) 10 mg PO DAILY [facility] Last Admin: 10/25/17 09:09 Dose: 10 mg Rosuvastatin Calcium (Crestor) 5 mg PO HS [facility] Last Admin: 10/24/17 21:30 Dose: 5 mg Thiamine HCl (Vitamin B1 Tab) 50 mg PO DAILY [facility] Last Admin: 10/25/17 09:07 Dose: 50 mg - Labs Labs: 10/25/17 07:39 10/25/17 07:39 PT 13.1 SECONDS (9.7-12.2) H 10/21/17 10:38 INR 1.1 10/21/17 10:38 APTT 30 SECONDS (21-34) 10/21/17 10:38
[2017-10-25] MEDS: Latanoprost 2.5 ml Opht Soln OD SCH (22:02)
--- NOTE | 2017-10-25 22:57 | PN ---
DATE: 10/25/2017 SUBJECTIVE: The patient is seen today, 10/25/2017. He is not in any cardiopulmonary distress as he was examined today. PHYSICAL EXAMINATION: VITAL SIGNS: Blood pressure 142/90, temperature 98, respiratory rate 20, and pulse 90. NECK: Supple. No JVD. No carotid bruit. No lymph node. No thyromegaly. CHEST AND LUNGS: Bilateral symmetrical expansion. Good air exchange. No rales. No rhonchi. CARDIOVASCULAR SYSTEM: PMI not localized. S1, S2. No additional sounds. ABDOMEN: Normoactive bowel sounds. No tenderness. No organomegaly. No masses. EXTREMITIES: No cyanosis, no clubbing, no edema. SPOOL CLEANER: Alert, awake, and oriented x2. No neurological deficits could be appreciated. ASSESSMENT: Pneumonia, left pleural effusion, smoker, chronic obstructive pulmonary disease, hypertension, and history of cancer prostrate. PLAN: Continue current antibiotics, and if cleared by Pulmonary, we will discharge in the morning. Ryna MD Zeeshan
[2017-10-26] MEDS: Albuterol-Ipratrop 3 mg / 0.5 (3 ml) UD INH PRN (06:44)
[2017-10-26 08:41] VITALS: BP 137/88; TEMP 98; O2SAT 96
--- NOTE | 2017-10-26 09:42 | RAD ---
HISTORY: pleural effusion COMPARISON: 10/19/2017 TECHNIQUE: PA and lateral FINDINGS: LUNGS: Patchy opacity at right base. Atelectasis versus infiltrate. Follow-up advised. PLEURA: Moderate right pleural effusion. The pleural effusion is seen only along the right lateral chest wall suggesting that this may be loculated. No left pleural effusion. No pneumothorax. CARDIOVASCULAR: Normal. OSSEOUS STRUCTURES: No significant abnormalities. VISUALIZED UPPER ABDOMEN: Normal. OTHER FINDINGS: None. IMPRESSION: Right lateral pleural effusion, possibly loculated. Infiltrate versus atelectasis at right base.
[2017-10-26] MEDS: Enoxaparin 40 mg Syringe SC SCH (10:37)
[2017-10-26] MEDS: Azithromycin 500 MG in Sodium Chloride 0.9% 250 ML IVPB SCH (10:44)
--- NOTE | 2017-10-26 12:50 | CP.PCM.PN ---
Subjective - Date & Time of Evaluation Date of Evaluation: 10/26/17 Time of Evaluation: 12:50 - Subjective Subjective: -FOLLOW UP WITH DR. MONTESINOS IN THE OFFICE WITHIN 5-7 DAYS OF DISCHARGE---CALL THE OFFICE TO MAKE AN APPOINTMENT. -FOLLOW UP WITH DR. ALLEN (LUNG DOCTOR) IN THE OFFICE WITHIN 10-14 DAYS OF DISCHARGE---CALL THE OFFICE TO MAKE AN APPOINTMENT. -CONTINUE YOUR HOME MEDICATIONS A USUAL. -NEW MEDICATIONS INCLUDE: 1) LEVAQUIN (ANTIBIOTIC) 500 MG (TAKE 1 TABLET) BY MOUTH ONCE A DAY FOR 7 DAYS. START ON 10/27/17. 2) FLORASTOR (PROBIOTIC) (TAKE 1 TABLET) BY MOUTH TWICE A DAY FOR 7 DAYS. START ON 10/27/17 AND TAKE MORNING AND EVENING. 3) ADVAIR INHALER (FOR YOUR BREATHING) 250/50 MG, USE DIRECTED TWICE A DAY ( MORNING AND EVENING). -FOR FURTHER CONCERNS OR QUESTIONS, CONTACT DR. MONTESINOS OR DR. ALLEN. Objective - Vital Signs/Intake and Output Vital Signs (last 24 hours): Temp Pulse Resp BP Pulse Ox 98.0 F 100 H 20 137/88 96 10/26/17 07:30 10/26/17 07:30 10/26/17 07:30 10/26/17 07:30 10/26/17 07:30 Intake and Output: 10/26/17 10/26/17 06:59 18:59 Output Total 1000 Balance -1000 - Medications Medications: Current Medications Albuterol/Ipratropium (Duoneb 3 Mg/0.5 Mg (3 Ml) Ud) 3 ml INH RQ4 PRN PRN Reason: Shortness of Breath Last Admin: 10/26/17 06:44 Dose: 3 ml Amlodipine Besylate (Norvasc) 10 mg PO DAILY [facility] Last Admin: 10/26/17 10:37 Dose: 10 mg Bisoprolol Fumarate (Zebeta) 5 mg PO DAILY [facility] Last Admin: 10/26/17 10:39 Dose: 5 mg Clonidine HCl (Catapres) 0.1 mg PO BID [facility] Last Admin: 10/26/17 10:37 Dose: 0.1 mg Enoxaparin Sodium (Lovenox) 40 mg SC DAILY [facility] Last Admin: 10/26/17 10:37 Dose: 40 mg Ferrous Sulfate (Feosol) 325 mg PO DAILY [facility] Last Admin: 10/26/17 10:39 Dose: 325 mg Azithromycin 500 mg/ Sodium (Chloride) 250 mls @ 250 mls/hr IVPB DAILY [facility] PRN Reason: Protocol Last Admin: 10/26/17 10:44 Dose: 250 mls/hr Latanoprost (Xalatan Opht) 2.5 ml OD HS [facility] Last Admin: 10/25/17 22:02 Dose: 2.5 ml Megestrol Acetate (Megace) 40 mg PO DAILY [facility] Last Admin: 10/26/17 10:39 Dose: 40 mg Oxybutynin Chloride (Ditropan Tab) 5 mg PO TID [facility] Last Admin: 10/26/17 10:39 Dose: 5 mg Prednisone (Prednisone Tab) 10 mg PO DAILY [facility] Last Admin: 10/26/17 10:37 Dose: 10 mg Rosuvastatin Calcium (Crestor) 5 mg PO HS [facility] Last Admin: 10/25/17 22:02 Dose: 5 mg Thiamine HCl (Vitamin B1 Tab) 50 mg PO DAILY [facility] Last Admin: 10/26/17 10:39 Dose: 50 mg - Labs Labs: 10/25/17 07:39 10/25/17 07:39 PT 13.1 SECONDS (9.7-12.2) H 10/21/17 10:38 INR 1.1 10/21/17 10:38 APTT 30 SECONDS (21-34) 10/21/17 10:38
[2017-10-26 13:58] VITALS: PULSE 80
--- NOTE | 2017-10-27 18:21 | DS ---
REASON FOR ADMISSION: This is a 62-year-old -[place] male with history of multiple medical problems who was admitted for shortness of breath, found to have pleural effusion. COURSE OF HOSPITALIZATION: The patient was admitted to medical floor and he had a pulmonary consult done by Dr. Echevarria. The patient was found to have pleural effusion and thought was parapneumonic. The patient was started on IV antibiotics. The repeated x-ray did not show significant changes though the patient clinically was remarkably improving. The patient was discharged home on Levaquin 500 mg to continue for another 7 days with probiotics and tapered prednisone. The patient also was advised to resume his home medications. FINAL DIAGNOSES: Exacerbation of chronic obstructive pulmonary disease, hypertension, loculated pleural effusion with possible underlying pneumonia. [facility] MD Zeeshan
== END 2017-10-26 16:00 | disposition home or self-care (01) | DRG 584 ==
LOC: C.ER 13:02 → C.9E 15:40 → C.6T 15:40
PROVIDERS: ADMIT Internal Medicine; ATTEND Internal Medicine
DX: A41.9 Sepsis, unspecified organism (principal); J18.9 Pneumonia, unspecified organism; F20.9 Schizophrenia, unspecified; I11.0 Hypertensive heart disease with heart failure; I50.9 Heart failure, unspecified; J44.0 Chronic obstructive pulmonary disease with (acute) lower respiratory infection; J98.11 Atelectasis; R09.02 Hypoxemia; E78.5 Hyperlipidemia, unspecified; F17.200 Nicotine dependence, unspecified, uncomplicated; Z85.46 Personal history of malignant neoplasm of prostate; Z53.09 Procedure and treatment not carried out because of other contraindication